=== PATIENT | female | born 1955 | race Two or more races ===

== ENCOUNTER 2018-09-13 17:44 | Emergency (ER) | payer OTHER ==
[~2018-09-13] VITALS: Ht 165.1 cm; Wt 84.8 kg
--- NOTE | 2018-09-13 18:18 | NUR ---
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
[2018-09-13] MEDS ORDERED: TDAP [DIPH/PERTUSSIS/TET] 0.5 ML VIAL IM ONE ×2 (20:00→20:13)
[2018-09-13] MEDS ORDERED: IBUPROFEN 600 MG TABLET PO ONE ×2 (20:00→20:12)
[2018-09-13] MEDS ORDERED: BACITRACIN ZINC OINT PACKET 1 EA PACKET TP ONE (20:12)
--- NOTE | 2018-09-13 20:20 | NUR ---
ARCHITECTURE DRAFTER AT BEDSIDE FOR WOUND CARE
--- NOTE | 2018-09-13 20:38 | NUR ---
SHIVAM RILEY AT BEDSIDE FOR STAPLE APPLICATION
[2018-09-13] MEDS ORDERED: LIDOCAINE 1%-EPI 1:100,000 20 ML VIAL ONE (20:40)
--- NOTE | 2018-09-13 20:53 | NUR ---
Patient discharged to home in stable condition. Written and verbal after care instructions given. Patient verbalizes understanding of instruction.
[2018-09-13] MEDS ORDERED: LIDOCAINE HCL/PF 1% 30 ML VIAL TP ONE (21:00)
[2018-09-13 21:37] VITALS: BP 137/74
== END 2018-09-13 20:35 | disposition home or self-care (01) ==
LOC: ER 17:49
DX: S06.0X0A Concussion without loss of consciousness, initial encounter (principal); S01.01XA Laceration without foreign body of scalp, initial encounter; R51 Headache; I10 Essential (primary) hypertension; E03.9 Hypothyroidism, unspecified; W18.09XA Striking against other object with subsequent fall, initial encounter; Y93.89 Activity, other specified; Y92.89 Other specified places as the place of occurrence of the external cause; Y99.8 Other external cause status
CPT/HCPCS: 70450-TC; 70490-TC; 90715; A6403; J3490